=== PATIENT | male | born 1950 ===

== ENCOUNTER 2017-05-14 11:29 | Day surgery (SDC) | payer MEDICARE ==
[~2017-05-14] VITALS: Ht 172.7 cm; Wt 83.7 kg
[2017-05-14] MEDS ORDERED: SIMV10 PO (12:20)
[2017-05-14] MEDS ORDERED: LOSA50 PO (12:20)
[2017-05-14] MEDS ORDERED: SILD50TA PO (12:20)
[2017-05-14] MEDS ORDERED: ALLEGRA ALLERG180 M1 PO (12:21)
[2017-05-14] MEDS ORDERED: ANDROGEL2.5 GM TD (12:21)
== END 2017-05-14 15:20 | disposition home or self-care (01) ==
LOC: ORSCSDS 11:29
PROVIDERS: Orthopaedic Surgery
PROC: 01N40ZZ Release Ulnar Nerve, Open Approach (ICD-10-PCS; principal; 2017-05-14 13:00)
DX: G56.22 Lesion of ulnar nerve, left upper limb (principal); I10 Essential (primary) hypertension; K21.9 Gastro-esophageal reflux disease without esophagitis; Z87.891 Personal history of nicotine dependence; Z79.899 Other long term (current) drug therapy
CPT/HCPCS: J0171; J0330; J0690; J1100; J2250; J2405; J3010; J7120

== ENCOUNTER → 2020-08-06 | Outpatient (CLI) | payer MEDICARE ==
[~2020-08-06] MED LIST: ALLEGRA ALLERG180 M1 PO; ANDROGEL2.5 GM TD; LOSA50 PO; SILD50TA PO; SIMV10 PO
== END ==
LOC: LAB SHORT 17:27 → LAB 17:27
DX: R21 Rash and other nonspecific skin eruption (principal); L57.0 Actinic keratosis; B35.3 Tinea pedis; B35.1 Tinea unguium; L81.4 Other melanin hyperpigmentation; D22.62 Melanocytic nevi of left upper limb, including shoulder; D22.5 Melanocytic nevi of trunk; D22.71 Melanocytic nevi of right lower limb, including hip; L57.8 Other skin changes due to chronic exposure to nonionizing radiation; L85.3 Xerosis cutis; Z71.89 Other specified counseling
CPT/HCPCS: 87070; 87205

== ENCOUNTER 2023-04-17 13:31 | Emergency (ER) | payer OTHER, MEDICARE ==
[~2023-04-17] VITALS: Ht 172.7 cm; Wt 86.2 kg
[2023-04-17 13:46] VITALS: BP 164/92
[2023-04-17] MEDS ORDERED: LIDO700A20 TOP (15:39)
[2023-04-17] MEDS ORDERED: CYCL10 PO (15:39)
== END 2023-04-17 15:49 | disposition home or self-care (01) ==
LOC: ER 13:31
DX: M62.830 Muscle spasm of back (principal); Z79.890 Hormone replacement therapy; Z79.899 Other long term (current) drug therapy; W00.0XXA Fall on same level due to ice and snow, initial encounter; Y92.520 Airport as the place of occurrence of the external cause
CPT/HCPCS: 72070; 72100; 96372; 99283-25; A9270; J1885